=== PATIENT | male | born 1990 | race Caucasian/White ===

== ENCOUNTER 2017-04-03 21:11 | Inpatient (IN) | payer OTHER ==
[2017-04-03 21:17] VITALS: O2SAT 99
[2017-04-03 22:08] LABS: BASO # 0.1 K/uL (0.0-0.2); BASO % 0.9 % (0.0-2.0); EOS # 0.1 K/uL (0.0-0.7); EOS % 0.9 % (0.0-4.0); LYMPH # 3.9 K/uL (1.0-4.3); MEAN CELL VOLUME 79.6 fl (80.0-94.0); MEAN CORPUSCULAR HEMOGLOBIN 25.6 pg (27.0-31.0); MEAN CORPUSCULAR HGB CONC 32.2 g/dL (33.0-37.0); MEAN PLATELET VOLUME 9.3 fl (7.2-11.7); MONO # 0.9 K/uL (0.0-0.8); MONO % 7.6 % (0.0-10.0); NEUT # 6.5 K/uL (1.8-7.0); NEUT % 56.6 % (50.0-75.0); WHITE BLOOD COUNT 11.5 K/uL (4.8-10.8)
[2017-04-03 22:18] LABS: RBC URINE < 1 /hpf (0-3); URINE BILIRUBIN NEGATIVE (NEGATIVE); URINE BLOOD NEGATIVE (NEGATIVE); URINE COLOR STRAW (YELLOW); URINE GLUCOSE (UA) NEG (Normal); URINE KETONE NEGATIVE (NEGATIVE); URINE LEUKOCYTE ESTERASE NEG Leu/uL (Negative); URINE PROTEIN NEGATIVE (NEGATIVE); URINE UROBILINOGEN 0.2-1.0 mg/dL (0.2-1.0)
[2017-04-03 22:27] LABS: ALCOHOL SERUM 53 mg/dl (0-10); ALKALINE PHOSPHATASE 51 U/L (38-126); ALT/SGPT 47 U/L (21-72); AST/SGOT 61 U/L (17-59); BILIRUBIN,TOTAL 0.4 mg/dl (0.2-1.3); BLOOD UREA NITROGEN 13 mg/dl (9-20); CALCIUM 9.5 mg/dL (8.4-10.2); CARBON DIOXIDE 25 mmol/L (22-30); CHLORIDE 104 mmol/L (98-107); GFR AFRICAN-AMERICAN > 60; GLUCOSE,RANDOM 89 mg/dL (75-110); POTASSIUM 3.7 MMOL/L (3.6-5.0); SODIUM 141 mmol/l (132-148); TOTAL PROTEIN 8.4 G/DL (6.3-8.2)
--- NOTE | 2017-04-03 22:28 | ED PDOC ---
HPI: Psych/Substance Abuse Time Seen by Provider: 04/03/17 21:34 Chief Complaint (Nursing): Psychiatric Evaluation Chief Complaint (Provider): psych Additional Complaint(s): 26yo M in ED with hx of bipolar d/o. in ER with suicide attempts. states this AM he took a number of sleeping pills, however woke up and vomited. then decided to go to [facility] in attempt to jump off, however stated he couldnt find an opportunity to jump. pt then went to [facility] in [place], stood over the edge in attempt to jump, someone saw pt and pulled him back called EMS. In ER pt admits to depression suicidal thoughts x1 week. negative for: illicit drug use,hallucinations Past Medical History Reviewed: Historical Data, Nursing Documentation, Vital Signs Vital Signs: Last Vital Signs Temp 98.2 F 04/03/17 21:13 Pulse 85 04/03/17 21:13 Resp 16 04/03/17 21:13 BP 130/79 04/03/17 21:13 Pulse Ox 99 04/03/17 21:13 - Medical History PMH: No Chronic Diseases - Family History Family History: States: No Known Family Hx - Allergies Allergies/Adverse Reactions: Allergies Allergy/AdvReac Type Severity Reaction Status Date / Time Unobtainable Allergy Verified 04/03/17 21:31 Review of Systems ROS Statement: Except As Marked, All Systems Reviewed And Found Negative Psych: Positive for: Anxiety, Depression, Suicidal ideation Physical Exam - Reviewed Nursing Documentation Reviewed: Yes Vital Signs Reviewed: Yes - Physical Exam Appears: Positive for: Well, Non-toxic, No Acute Distress Head Exam: Positive for: ATRAUMATIC, NORMAL INSPECTION, NORMOCEPHALIC Skin: Positive for: Normal Color, Warm, DRY Eye Exam: Positive for: EOMI, Normal appearance, PERRL ENT: Positive for: Normal ENT Inspection Cardiovascular/Chest: Positive for: Regular Rate, Rhythm Respiratory: Positive for: CNT, Normal Breath Sounds Gastrointestinal/Abdominal: Positive for: Normal Exam, Bowel Sounds, Soft. Negative for: Tenderness Neurologic/Psych: Positive for: Alert, Oriented - Laboratory Results Result Diagrams: 04/03/17 21:45 04/03/17 21:45 - ECG O2 Sat by Pulse Oximetry: 99 - Progress ED Course And Treament: Orders Category Date Time Status ELECTROCARDIOGRAM Stat Cardiology 04/03/17 21:31 Ordered ACETAMINOPHEN Stat Chem 04/03/17 21:45 Received ALCOHOL SERUM Stat Chem 04/03/17 21:45 Received COMP METABOLIC PANEL Stat Chem 04/03/17 21:45 Received DRUG SCREEN, URINE Stat Chem 04/03/17 21:45 Received SALICYLATE Stat Chem 04/03/17 21:45 Received Crisis Evaluation As Ordered Cons 04/03/17 21:33 Ordered EKG-ED [EDNURTX] STAT ED Care 04/03/17 21:33 Active CHEST TWO VIEWS (PA/LAT) [RAD] Stat Exams 04/03/17 21:33 Taken CBC (WITH DIFFERENTIAL) Stat BEBE 04/03/17 21:45 Completed 1:1 Observation CONT Pt Care 04/03/17 21:31 Active URINALYSIS Stat URINALYSIS 04/03/17 21:45 Received Medical Decision Making Medical Decision Making: PT will be admitted for depression under MD Max Disposition - Clinical Impression Clinical Impression: Depression - Patient ED Disposition Is Patient to be Admitted: Yes - Disposition Disposition Time: 01:31 Condition: STABLE Forms: [employer] (Armenian) - Pt Status Changed To: Hospital Disposition Of: Inpatient - Admit Certification Admit to Inpatient:: After my assessment, the patient will require hospitalization for at least two midnights. This is because of the severity of symptoms shown, intensity of services needed, and/or the medical risk in this patient being treated as an outpatient. - POA Present On Arrival: None
[2017-04-03 22:43] LABS: ALB/GLOB RATIO 1.4 (1.0-2.1)
--- NOTE | 2017-04-04 05:17 | PCM.BM ---
Treatment Plan Problems - Problems identified on initial assessmt Hopelessness/Helplessness Date Initiated: 04/04/17 Time Initiated: 05:16 Assessment reference: NA Status: Active Altered Sleep Pattern Date Initiated: 04/04/17 Time Initiated: 05:16 Assessment reference: NA Status: Active Treatment assets and liabiliti Patient Assests: cooperative, educated, ADL independent, physically healthy, negotiates basic needs, cognitively intact Patient Liabilities: financial problems, legal issue - Milieu Protocol Maintain good personal hygiene: daily Encourage regular showers, daily Remind patient to perform daily oral care Conduct patient checks and document Observation sheet: Q15 minutes Maintain personal safety: every shift Educate patient to report safety concerns to staff, every shift Monitor environment for contraband/sharps Medication safety: Monitor for expected outcome, potential side effects: every shift, Assess barriers to learning: every shift, Assess readiness for medication education: every shift
[2017-04-04] MEDS ORDERED: DiphenhydrAMINE 50 mg/ml Inj IM PRN (05:28)
[2017-04-04] MEDS ORDERED: Alum-Mag Hydrox-Simethicone Susp (30 mL) PO PRN (05:28)
[2017-04-04] MEDS ORDERED: Magnesium Hydroxide Susp 30 ml UD PO PRN (05:28)
--- NOTE | 2017-04-04 09:37 | RAD ---
HISTORY: medical COMPARISON: No prior. TECHNIQUE: Chest PA and lateral FINDINGS: LUNGS: No active pulmonary disease. PLEURA: No significant pleural effusion identified. No pneumothorax apparent. CARDIOVASCULAR: Normal. OSSEOUS STRUCTURES: No significant abnormalities. VISUALIZED UPPER ABDOMEN: Normal. OTHER FINDINGS: None. IMPRESSION: No active disease.
[2017-04-04 09:57] LABS: T4 7.9 ug/dl (5.5-11.0)
[2017-04-04 10:11] LABS: THYROID STIMULATING HORMONE 2.61 mIU/ML (0.46-4.68)
--- NOTE | 2017-04-04 12:16 | CARD ---
APPROVED REPORT EKG Measurement Heart [id number] <Conclusion> Normal sinus rhythm Normal ECG
--- NOTE | 2017-04-04 14:27 | CP.PCM.CON ---
<James Tesfaye - Last Filed: 04/04/17 14:21> History of Present Illness - History of Present Illness History of Present Illness: 26 year old male with PMHx of bipolar disorder seen at bedside after being admitted to the hospital s/p suicide attempt last night. Patient appears AAO x 3 and is seen sleeping in bed at the time of examination. Patient states that he took a large number of sleeping pills to try and overdose but awoke from the intoxication. At that time he went to the [facility] planning on jumping off but could not find a place to jump off so instead he tried jumping into the river in [place] but was stopped by a passerby. Patient states that he has been having suicidal thoughts for roughly a week now. He denies thoughts of harming others and states that his desire to commit suicide has decreased following the events of last night. Patient denies any further complaints at this time. PMH: Bipolar disorder Meds: Denies All: Denies PSH: Denies FH: No known hx of depression SH: Social drinker, admits to smoking cannabis avg of 1 x/week, denies use of tobacco products Review of Systems - Review of Systems Review of Systems: unremarkable outside of HPI Past Patient History - Past Social History Smoking Status: hookah - CARDIAC Hx Cardiac Disorders: No - PULMONARY Hx Respiratory Disorders: No - NEUROLOGICAL Hx Neurological Disorder: No - HEENT Hx HEENT Problems: No - RENAL Hx Chronic Kidney Disease: No - ENDOCRINE/METABOLIC Hx Endocrine Disorders: No - HEMATOLOGICAL/ONCOLOGICAL Hx Blood Disorders: No - INTEGUMENTARY Hx Dermatological Problems: No - MUSCULOSKELETAL/RHEUMATOLOGICAL Hx Musculoskeletal Disorders: No - GENITOURINARY/GYNECOLOGICAL Hx Genitourinary Disorders: No - PSYCHIATRIC Hx Substance Use: Yes (smokes marijuana) - SURGICAL HISTORY Hx Surgeries: No - ANESTHESIA Hx Anesthesia: No Meds Allergies/Adverse Reactions: Allergies Allergy/AdvReac Type Severity Reaction Status Date / Time No Known Allergies Allergy Verified 04/04/17 05:30 - Medications Medications: Current Medications Acetaminophen (Tylenol 325mg Tab) 650 mg PO Q4 PRN PRN Reason: pain levl 4-7 Al Hydrox/Mg Hydrox/Simethicone (Maalox Plus 30 Ml) 30 ml PO Q4 PRN PRN Reason: Dyspepsia Aripiprazole (Abilify) 5 mg PO DAILY LORRAINE Diphenhydramine HCl (Benadryl) 50 mg IM Q6 PRN PRN Reason: Extrapyramidal S/S Unable PO Diphenhydramine HCl (Benadryl) 50 mg PO Q6 PRN PRN Reason: Extrapyramidal Symptoms Diphenhydramine HCl (Benadryl) 50 mg PO HS PRN PRN Reason: Sleep Haloperidol (Haldol) 5 mg PO Q4 PRN PRN Reason: Agitation Haloperidol Lactate (Haldol) 5 mg IM Q4 PRN PRN Reason: Agitation, Unable to Take PO Lorazepam (Ativan) 2 mg IM Q4 PRN PRN Reason: Anxiety/Agitation,Unable PO Lorazepam (Ativan) 2 mg PO Q4 PRN PRN Reason: Anxiety/Agitation Magnesium Hydroxide (Milk Of Magnesia) 30 ml PO HS PRN PRN Reason: Constipation Trazodone HCl (Desyrel) 50 mg PO HS LORRAINE Physical Exam - Constitutional Appears: Non-toxic, Unkempt, Agitated - Head Exam Head Exam: ATRAUMATIC, NORMOCEPHALIC - Eye Exam Eye Exam: EOMI, PERRL Pupil Exam: NORMAL ACCOMODATION - ENT Exam ENT Exam: Mucous Membranes Moist, Normal Exam - Neck Exam Neck exam: Positive for: Normal Inspection. Negative for: Tenderness - Respiratory Exam Respiratory Exam: Clear to Auscultation Bilateral, NORMAL BREATHING PATTERN. absent: Rales, Rhonchi, Wheezes, Respiratory Distress - Cardiovascular Exam Cardiovascular Exam: REGULAR RHYTHM - GI/Abdominal Exam GI & Abdominal Exam: Normal Bowel Sounds. absent: Distended, Firm, Guarding - Rectal Exam Rectal Exam: Deferred - Extremities Exam Extremities exam: Positive for: full ROM, normal capillary refill. Negative for : calf tenderness - Neurological Exam Neurological exam: Alert, Oriented x3 - Psychiatric Exam Psychiatric exam: Depressed, Suicidal Ideation - Skin Skin Exam: Intact, Normal Color, Warm Results - Vital Signs Recent Vital Signs: Last Vital Signs Temp 97.8 F 04/04/17 04:20 Pulse 61 04/04/17 04:20 Resp 18 04/04/17 04:20 BP 104/54 L 04/04/17 04:20 Pulse Ox 99 04/04/17 04:20 - Labs Result Diagrams: 04/03/17 21:45 04/03/17 21:45 Labs: Laboratory Results - last 24 hr 04/03/17 04/03/17 04/03/17 21:45 21:45 21:45 WBC 11.5 H RBC 5.91 H Hgb 15.1 Hct 47.0 MCV 79.6 L MCH 25.6 L MCHC 32.2 L RDW 13.0 Plt Count 282 MPV 9.3 Neut % (Auto) 56.6 Lymph % (Auto) 34.0 Tillman % (Auto) 7.6 Eos % (Auto) 0.9 Baso % (Auto) 0.9 Neut # 6.5 Lymph # 3.9 Tillman # 0.9 H Eos # 0.1 Baso # 0.1 Sodium 141 Potassium 3.7 Chloride 104 Carbon Dioxide 25 Anion Gap 16 BUN 13 Creatinine 1.0 Est GFR ( Amer) > 60 Est GFR (Non-Af Amer) > 60 Random Glucose 89 Calcium 9.5 Total Bilirubin 0.4 AST 61 H ALT 47 Alkaline Phosphatase 51 Total Protein 8.4 H Albumin 5.0 Globulin 3.4 Albumin/Globulin Ratio 1.4 Triglycerides Cholesterol LDL Cholesterol Direct HDL Cholesterol Thyroxine (T4) TSH 3rd Generation Urine Color Urine Clarity Urine pH Ur Specific Correll Urine Protein Urine Glucose (UA) Urine Ketones Urine Blood Urine Nitrate Urine Bilirubin Urine Urobilinogen Ur Leukocyte Esterase Urine RBC (Auto) Ur Squamous Epith Cells Salicylates < 1.0 Urine Opiates Screen Urine Methadone Screen Acetaminophen < 10.0 L Ur Barbiturates Screen Ur Phencyclidine Scrn Ur Amphetamines Screen U Benzodiazepines Scrn U Oth Cocaine Metabols U Cannabinoids Screen Alcohol, Quantitative 53 H 04/03/17 04/03/17 04/04/17 21:45 21:45 09:03 WBC RBC Hgb Hct MCV MCH MCHC RDW Plt Count MPV Neut % (Auto) Lymph % (Auto) Tillman % (Auto) Eos % (Auto) Baso % (Auto) Neut # Lymph # Tillman # Eos # Baso # Sodium Potassium Chloride Carbon Dioxide Anion Gap BUN Creatinine Est GFR ( Amer) Est GFR (Non-Af Amer) Random Glucose Calcium Total Bilirubin AST ALT Alkaline Phosphatase Total Protein Albumin Globulin Albumin/Globulin Ratio Triglycerides 168 H Cholesterol 180 LDL Cholesterol Direct 104 HDL Cholesterol 47 Thyroxine (T4) 7.90 TSH 3rd Generation 2.61 Urine Color Straw Urine Clarity Clear Urine pH 6.0 Ur Specific Correll 1.005 Urine Protein Negative Urine Glucose (UA) Neg Urine Ketones Negative Urine Blood Negative Urine Nitrate Negative Urine Bilirubin Negative Urine Urobilinogen 0.2-1.0 Ur Leukocyte Esterase Neg Urine RBC (Auto) < 1 Ur Squamous Epith Cells < 1 Salicylates Urine Opiates Screen Negative Urine Methadone Screen Negative Acetaminophen Ur Barbiturates Screen Negative Ur Phencyclidine Scrn Negative Ur Amphetamines Screen Negative U Benzodiazepines Scrn Negative U Oth Cocaine Metabols Negative U Cannabinoids Screen Positive H Alcohol, Quantitative Assessment & Plan (1) Depression Assessment and Plan: 26 year old male seen at bedside following a suicide attempt last night secondary to depression and bipolar disorder. Patient to remain in house for evaluation for at least one more night Status: Acute Comment: Patient placed on Abilify, Halodol, Desyrel and Ativan. Psych on board - Dr. Santana - Date & Time Date: 04/04/17 Time: 14:36 <Kimberly Smith - Last Filed: 04/04/17 15:12> Meds - Medications Medications: Current Medications Acetaminophen (Tylenol 325mg Tab) 650 mg PO Q4 PRN PRN Reason: pain levl 4-7 Al Hydrox/Mg Hydrox/Simethicone (Maalox Plus 30 Ml) 30 ml PO Q4 PRN PRN Reason: Dyspepsia Aripiprazole (Abilify) 5 mg PO DAILY LORRAINE Diphenhydramine HCl (Benadryl) 50 mg IM Q6 PRN PRN Reason: Extrapyramidal S/S Unable PO Diphenhydramine HCl (Benadryl) 50 mg PO Q6 PRN PRN Reason: Extrapyramidal Symptoms Diphenhydramine HCl (Benadryl) 50 mg PO HS PRN PRN Reason: Sleep Haloperidol (Haldol) 5 mg PO Q4 PRN PRN Reason: Agitation Haloperidol Lactate (Haldol) 5 mg IM Q4 PRN PRN Reason: Agitation, Unable to Take PO Lorazepam (Ativan) 2 mg IM Q4 PRN PRN Reason: Anxiety/Agitation,Unable PO Lorazepam (Ativan) 2 mg PO Q4 PRN PRN Reason: Anxiety/Agitation Magnesium Hydroxide (Milk Of Magnesia) 30 ml PO HS PRN PRN Reason: Constipation Trazodone HCl (Desyrel) 50 mg PO HS LORRAINE Results - Vital Signs Recent Vital Signs: Last Vital Signs Temp 97.8 F 04/04/17 04:20 Pulse 61 04/04/17 04:20 Resp 18 04/04/17 04:20 BP 104/54 L 04/04/17 04:20 Pulse Ox 99 04/04/17 04:20 - Labs Result Diagrams: 04/03/17 21:45 04/03/17 21:45 Labs: Laboratory Results - last 24 hr 04/03/17 04/03/17 04/03/17 21:45 21:45 21:45 WBC 11.5 H RBC 5.91 H Hgb 15.1 Hct 47.0 MCV 79.6 L MCH 25.6 L MCHC 32.2 L RDW 13.0 Plt Count 282 MPV 9.3 Neut % (Auto) 56.6 Lymph % (Auto) 34.0 Tillman % (Auto) 7.6 Eos % (Auto) 0.9 Baso % (Auto) 0.9 Neut # 6.5 Lymph # 3.9 Tillman # 0.9 H Eos # 0.1 Baso # 0.1 Sodium 141 Potassium 3.7 Chloride 104 Carbon Dioxide 25 Anion Gap 16 BUN 13 Creatinine 1.0 Est GFR ( Amer) > 60 Est GFR (Non-Af Amer) > 60 Random Glucose 89 Calcium 9.5 Total Bilirubin 0.4 AST 61 H ALT 47 Alkaline Phosphatase 51 Total Protein 8.4 H Albumin 5.0 Globulin 3.4 Albumin/Globulin Ratio 1.4 Triglycerides Cholesterol LDL Cholesterol Direct HDL Cholesterol Thyroxine (T4) TSH 3rd Generation Urine Color Urine Clarity Urine pH Ur Specific Correll Urine Protein Urine Glucose (UA) Urine Ketones Urine Blood Urine Nitrate Urine Bilirubin Urine Urobilinogen Ur Leukocyte Esterase Urine RBC (Auto) Ur Squamous Epith Cells Salicylates < 1.0 Urine Opiates Screen Urine Methadone Screen Acetaminophen < 10.0 L Ur Barbiturates Screen Ur Phencyclidine Scrn Ur Amphetamines Screen U Benzodiazepines Scrn U Oth Cocaine Metabols U Cannabinoids Screen Alcohol, Quantitative 53 H 04/03/17 04/03/17 04/04/17 21:45 21:45 09:03 WBC RBC Hgb Hct MCV MCH MCHC RDW Plt Count MPV Neut % (Auto) Lymph % (Auto) Tillman % (Auto) Eos % (Auto) Baso % (Auto) Neut # Lymph # Tillman # Eos # Baso # Sodium Potassium Chloride Carbon Dioxide Anion Gap BUN Creatinine Est GFR ( Amer) Est GFR (Non-Af Amer) Random Glucose Calcium Total Bilirubin AST ALT Alkaline Phosphatase Total Protein Albumin Globulin Albumin/Globulin Ratio Triglycerides 168 H Cholesterol 180 LDL Cholesterol Direct 104 HDL Cholesterol 47 Thyroxine (T4) 7.90 TSH 3rd Generation 2.61 Urine Color Straw Urine Clarity Clear Urine pH 6.0 Ur Specific Correll 1.005 Urine Protein Negative Urine Glucose (UA) Neg Urine Ketones Negative Urine Blood Negative Urine Nitrate Negative Urine Bilirubin Negative Urine Urobilinogen 0.2-1.0 Ur Leukocyte Esterase Neg Urine RBC (Auto) < 1 Ur Squamous Epith Cells < 1 Salicylates Urine Opiates Screen Negative Urine Methadone Screen Negative Acetaminophen Ur Barbiturates Screen Negative Ur Phencyclidine Scrn Negative Ur Amphetamines Screen Negative U Benzodiazepines Scrn Negative U Oth Cocaine Metabols Negative U Cannabinoids Screen Positive H Alcohol, Quantitative Attending/Attestation - Attestation I have personally seen and examined this patient.: Yes I have fully participated in the care of the patient.: Yes I have reviewed all pertinent clinical information: Yes Notes (Text): 04/04/17 15:12 pt seen examined, discussed with resident James Tesfaye. Agree with findings and plan as above.
--- NOTE | 2017-04-04 14:43 | PCM.PSYCH ---
Initial Psychiatric Evaluation - Initial Psychiatric Evaluation Type of Admission: Voluntary Legal Status: Capacity Chief Complaint (in patient's own words): THINGS ARE NOT GOING WELL FOR ME Patient's Reaction to Hospitalization: PT AGREED History of Present Illness and Precipitating Events: tim is a 26 y/o Marshallese male who was brought into ED by EMS secondary to attempting suicide. Pt stated he has been thinking of killing himself for 2-3 days. Pt stated he took 12 Zquils earlier in an attempt to overdose but he stated it did not work. Pt stated he then drove to [address] but did not find an opening to jump, so he drove to [place] [employer] and the police got him before he could jump. Pt stated 4 years ago he tried to hang himself and was dx with Bipolar Disorder and Depression. Pt stated he was in tx but has not been compliant since 2014 and was taking Lamictal but stopped in 2013. . 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 Pt stated he is under investigation by IRS and police and owes a lot of money to people. PT denied any current S/H I on the unit denied command hallucinations Current Medications: Active Medications Generic Name Dose Route Start Last Admin Trade Name Freq PRN Reason Stop Dose Admin Acetaminophen 650 mg 04/04/17 05:28 Tylenol 325mg Tab PO Q4 PRN pain levl 4-7 Al Hydrox/Mg Hydrox/Simethicone 30 ml 04/04/17 05:28 Maalox Plus 30 Ml PO Q4 PRN Dyspepsia Aripiprazole 5 mg 04/04/17 13:45 Abilify PO DAILY LORRAINE Diphenhydramine HCl 50 mg 04/04/17 05:28 Benadryl IM Q6 PRN Extrapyramidal S/S Unable PO Diphenhydramine HCl 50 mg 04/04/17 05:28 Benadryl PO Q6 PRN Extrapyramidal Symptoms Diphenhydramine HCl 50 mg 04/04/17 05:30 Benadryl PO HS PRN Sleep Haloperidol 5 mg 04/04/17 05:28 Haldol PO Q4 PRN Agitation Haloperidol Lactate 5 mg 04/04/17 05:28 Haldol IM Q4 PRN Agitation, Unable to Take PO Lorazepam 2 mg 04/04/17 05:28 Ativan IM Q4 PRN Anxiety/Agitation,Unable PO Lorazepam 2 mg 04/04/17 05:28 Ativan PO Q4 PRN Anxiety/Agitation Magnesium Hydroxide 30 ml 04/04/17 05:28 Milk Of Magnesia PO HS PRN Constipation Trazodone HCl 50 mg 04/04/17 22:00 Desyrel PO HS [facility] Past Psychiatric History - Past Psychiatric History Explanation of prior treatment: pt reported one inpatient hospitalization in 2012 after a suicidal attempt, was in treatment up till 2014 since then non compliant with medications History of Abuse: denied History of ETOH/Drug Use: drinks alcohol socially, uses cannabis occasionally History of Family Illness: denied Pertinent Medical Hx (Current Medical&Sleep Prob, Allergies): Allergies Allergy/AdvReac Type Severity Reaction Status Date / Time No Known Allergies Allergy Verified 04/04/17 05:30 No Known Home Med 04/04/17 Mental Status Examination - Personal Presentation Personal Presentation: Looks stated age - Affect Affect: Constricted, Depressed - Motor Activity Motor Activity: Psychomotor Retardation - Reliability in Providing Information Reliability in Providing Information: Poor, due to altered mood - Speech Speech: Relevant - Mood Mood: Depressed, Anxious - Formal Thought Process Formal Thought Process: No Impairment - Hallucinations/Delusions Additional comments: pt denied perceptual disturbances, non elicited - Obsessions/Compulsions Obsessions: No Compulsions: No - Cognitive Functions Orientation: Person, Place Sensorium: Alert Attention/Concentration: Attentive Judgement: Imparied, as evidence by: Lack of insight into illness Memory: Recent intact, as evidence by: Ability to recall events of the day - Risk Risk: Suicidal, Diminished functioning - Strength & Assets Inventory Strength & Assets Inventory: Family support - Limitations Additional comments: poor compliance DSM 5 DX - DSM 5 DSM 5 Diagnosis: bipolar II DISORDER DEPRESSED - Recommended/Plan of Treatment Treatment Recommendations and Plan of Treatment: START ABILIFY 5MG WITH PLAN TO UPTITRATE TRAZODONE 50MG QHS CBT, GROUP AND SUPPORTIVE THERAPY Projected ELOS: 7DAYS Prognosis: GUARDED Discharge Plan and Discharge Criteria: PT NO LONGER HAS SUICIDAL IDEATIONS
--- NOTE | 2017-04-05 10:35 | PCM.PYCHPN ---
Psychiatric Progress Note - Psychiatric Progress Note Patient seen today, length of contact: pt evaluated discussed with team chart reviewed Patient Chief Complaint: I made so many wrong financial decisions Problems Identified/Issues Discussed: pt more cooperative with better eye contact, appears remorseful and guilty for his impulsive financial decisions, continues to be depressed, denied any current suicidal or homicidal ideations denied perceptual disturbances discussed different treatment options for bipolar depression with pt, pt requested to be changed to seroquel explained to pt possible metabolic side effects Medical Problems: pt reported one inpatient hospitalization in 2013 after a suicidal attempt, was in treatment up till 2014 since then non compliant with medications DSM 5 Symptoms Update: bipolar diosrder depressed Medication Change: Yes (d/c abilify start seroquel) Medical Record Reviewed: Yes Mental Status Examination - Cognitive Function Orientation: Person, Place Attention: WNL Concentration: WNL Association: WNL Fund of Knowledge: WN Decription of patient's judgement and insights: fair insight , poor judgement - Mood Mood: Depressed, Anxious - Affect Affect: Constricted, Depressed - Speech Speech: Soft - Formal Thought Process Formal Thought Process: No Impairment Psychotic Thoughts and Behaviors: pt denied perceptual disturbances, non elicited - Suicidal Ideation Suicidal Ideation: No - Homicidal Ideation Homicidal Ideation: No Goal/Treatment Plan - Goal/Treatment Plan Need for Continued Stay: Severe depression anxiety, Discharge may exacerbated symptoms Progress Toward Problem(s) and Goals/Treatment Plan: discontinue abilify strat seroquel 200mg qhs with plan to uptitrate BT, GROUP AND SUPPORTIVE THERAPY Estimated Date of D/C: 04/09/17
[2017-04-05 16:28] VITALS: RESP 18
--- NOTE | 2017-04-06 11:42 | PCM.PYCHPN ---
Psychiatric Progress Note - Psychiatric Progress Note Patient seen today, length of contact: pt evaluated discussed with team chart reviewed Patient Chief Complaint: LEAH FEELING BETTER I have so many friends and family members who will help with my situation Problems Identified/Issues Discussed: pt more cooperative with better eye contact, reported feeling less depressed with brighter affect, relates that to the family and friends support, decided to move in with his parents on discharge denied any current suicidal or homicidal ideations denied perceptual disturbances no reported side effects of medications Medical Problems: pt reported one inpatient hospitalization in 2012 after a suicidal attempt, was in treatment up till 2014 since then non compliant with medications Medication Change: Yes (increase seroquel to 300mg qhs) Medical Record Reviewed: Yes Mental Status Examination - Cognitive Function Orientation: Person, Place Attention: WNL Concentration: WNL Association: WNL Fund of Knowledge: WN Decription of patient's judgement and insights: fair insight , poor judgement - Mood Mood: Depressed, Anxious - Affect Affect: Constricted, Depressed - Speech Speech: Soft - Formal Thought Process Formal Thought Process: No Impairment Psychotic Thoughts and Behaviors: pt denied perceptual disturbances, non elicited - Suicidal Ideation Suicidal Ideation: No - Homicidal Ideation Homicidal Ideation: No Goal/Treatment Plan - Goal/Treatment Plan Need for Continued Stay: Severe depression anxiety, Discharge may exacerbated symptoms Progress Toward Problem(s) and Goals/Treatment Plan: increase seroquel to 300mg qhs CBT, GROUP AND SUPPORTIVE THERAPY Estimated Date of D/C: 04/09/17
--- NOTE | 2017-04-07 13:33 | PCM.PYCHPN ---
Psychiatric Progress Note - Psychiatric Progress Note Patient seen today, length of contact: pt evaluated discussed with team chart reviewed Patient Chief Complaint: I had a good sleep last night Problems Identified/Issues Discussed: pt on evaluation reported feeling less depressed, brighter affect, better sleep no changes in appetite, denied any current suicidal or homicidal ideations denied perceptual disturbances. no reported side effects of medications Medical Problems: pt reported one inpatient hospitalization in 2013 after a suicidal attempt, was in treatment up till 2014 since then non compliant with medications DSM 5 Symptoms Update: bipolar I disorder depressed Medication Change: No Medical Record Reviewed: Yes Mental Status Examination - Cognitive Function Orientation: Person, Place Attention: WNL Concentration: WNL Association: WN Fund of Knowledge: [facility] Decription of patient's judgement and insights: fair insight , poor judgement - Mood Mood: Neutral - Affect Affect: Constricted - Speech Speech: Appropriate - Formal Thought Process Formal Thought Process: No Impairment Psychotic Thoughts and Behaviors: pt denied perceptual disturbances, non elicited - Suicidal Ideation Suicidal Ideation: No - Homicidal Ideation Homicidal Ideation: No Goal/Treatment Plan - Goal/Treatment Plan Need for Continued Stay: Severe depression anxiety, Discharge may exacerbated symptoms Progress Toward Problem(s) and Goals/Treatment Plan: continue seroquel 300mg qhs CBT, GROUP AND SUPPORTIVE THERAPY Estimated Date of D/C: 04/09/17
[2017-04-07 16:53] VITALS: BP 127/76; PULSE 83; TEMP 97.9
--- NOTE | 2017-04-08 13:20 | PCM.PYCHDC ---
Mental Status Examination - Mental Status Examination Orientation: Person, Place, Situation Memory: Intact Mood: Neutral Affect: Broad Attention: WNL Concentration: WNL Association: WNL Fund of Knowledge: WNL Formal Thought Process: No Impairment Description of patient's judgement and insight: fair insight and judgement, poor impulse control Psychotic Thoughts and Behaviors: pt denied perceptual disturbances, non elicited Suicidal Ideation: No Current Homicidal Ideation?: No Discharge Summary - Discharge Note Reason for Hospitalization: PT AGREED is a 26 y/o male who was brought into ED by EMS secondary to attempting suicide. Pt stated he has been thinking of killing himself for 2-3 days. Pt stated he took 12 Zquils earlier in an attempt to overdose but he stated it did not work. Pt stated he then drove to [email or web address] but did not find an opening to jump, so he drove to [place] [employer] and the police got him before he could jump. Pt stated 4 years ago he tried to hang himself and was dx with Bipolar Disorder and Depression. Pt stated he was in tx but has not been compliant since 2014 and was taking Lamictal but stopped in 2013. . 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 Pt stated he is under investigation by IRS and police and owes a lot of money to people. PT denied any current S/H I on the unit denied command hallucinations Consultations:: List each consultation separately and include: 1. Reason for request. 2. Findings. 3. Follow-up Summary of Hospital Course include:: 1. Description of specific treatment plan utilized for patients during their course of treatmen. 2. Summarize the time- course for resolution of acute symptoms and/or regressed behaviors. 3. Describe issues identified and worked on during hospitalization. 4. Describe medication utilized. 5. Describe medical problems identified and treated. 6. Reassessment of suicide risk Summary of Hospital Course: pt on admission was started on seroquel 100mg , it was uptitrated gradually to 300mg qhs pt reported improved sleep with gradual improvement in mood no reported side effects, pt attended groups, was provided with CBT and supportive therapy treatment plan was discussed with parents upon pt consent, on discharge mental status was stable pt denied suicidal or homicidal ideations to follow up with outpatient therapist and psychiatrist - Final Diagnosis (DSM 5) Condition upon Discharge: STABLE Disposition: HOME/ ROUTINE Follow-up Treatment Plan: continue seroquel 300mg qhs CBT, GROUP AND SUPPORTIVE THERAPY Prescriptions/Medication Reconciliation: QUEtiapine [SEROquel] 300 mg PO HS 30 Days #30 tab - Antipsychotic Medications Pt discharged on 2 or more routine antipsychotic medications: No
== END 2017-04-08 14:03 | disposition home or self-care (01) | DRG 885 ==
LOC: H.ER 21:11 → H.ERHOLD 04-04 01:37 → H.PSYCH 04-04 04:32
PROVIDERS: ADMIT Psychiatry & Neurology Psychiatry; ATTEND Psychiatry & Neurology Psychiatry
PROC: GZHZZZZ Group Psychotherapy (ICD-10-PCS; principal; 2017-04-07)
PROC: GZ51ZZZ Individual Psychotherapy, Behavioral (ICD-10-PCS; 2017-04-07)
DX: F31.81 Bipolar II disorder (principal); R45.851 Suicidal ideations; Z91.14 Patient's other noncompliance with medication regimen; Z91.19 Patient's noncompliance with other medical treatment and regimen; Z91.5 Personal history of self-harm; F12.90 Cannabis use, unspecified, uncomplicated